=== PATIENT | female | born 1975 | race Caucasian/White ===

== ENCOUNTER → 2020-06-14 00:31 | Outpatient (CLI) | payer BC, SELFPAY ==
[2020-06-14 17:44] LABS: SARS-CoV-2 RNA PCR Negative
== END ==
PROVIDERS: Visit Provider Obstetrics & Gynecology Gynecology
DX: Z01.812 Encounter for preprocedural laboratory examination (principal); Z20.822 Contact with and (suspected) exposure to COVID-19
CPT/HCPCS: C9803; U0003; U0005

== ENCOUNTER 2020-06-17 01:18 | Day surgery (SDC) | payer BC, SELFPAY ==
[2020-06-05 14:03] VITALS: BMI 34.4
--- NOTE | 2020-06-17 07:32 | PM.HPGS ---
History of Present Illness History of Present Illness Consent: Risks, benefits, and alternatives have been discussed and questions answered. Patient agrees to proceed with procedure. Chief complaint: fibroids Narrative: Cammy Kothari is a 44 year old female with 6 months of heavier cycles. u/s showed a 1.5 cm lesion adjacent to or within the endometrial cavity. Attempted to remove in office but unable to remove. Visually lesion appears to be a fibroid. Recommend to proceed with hysteroscopy and D&C and myosure. Risks of infection,bleeding, perforation,and fluid imbalance reviewed. Agrees to proceed. Review of Systems Review of Systems: Narrative: not repeated day of surgery; patient states no changes in status PMFSH Past Medical History Medical History (Updated 06/17/20 @ 07:38 by Ashlie Pelayo MD) GERD (gastroesophageal reflux disease) History of hysteroscopy IBS (irritable bowel syndrome) Surgical History Surgical History (Updated 06/17/20 @ 07:37 by Ashlie Pelayo MD) History of elective Social History Social History Smoking status: Never smoker Substance use: never Living arrangements: with family Gender identity (if verbalized by the patient): Female Spiritual care concerns: No Meds Home Medications and Allergies Home Medications Medication Instructions Recorded Confirmed Type norgestimate-ethinyl estradiol 1 tablet PO DAILY 06/05/20 06/05/20 History [Estarylla] Allergies Allergy/AdvReac Type Severity Reaction Status Date / Time No Known Allergies Allergy Verified 06/05/20 14:06 Exam Const: General: comfortable and no acute distress : External Female Exam: normal external appearance Speculum Exam - Vagina: normal appearance of the vagina Speculum Exam - Cervix: normal appearance of the cervix Bimanual exam- vagina & uterus: normal bimanual exam Bimanual Exam- Adnexa, other: normal adnexae and No adnexal tenderness Assessment and Plan Assessment and plan (1) Menorrhagia: Code(s): N92.0 - Excessive and frequent menstruation with regular cycle Status: Acute Assessment and Plan: plan to proceed withe hysteroscopy with XL myosure and D&C (2) Fibroids: Code(s): D21.9 - Benign neoplasm of connective and other soft tissue, unspecified Status: Acute
--- NOTE | 2020-06-17 07:39 | WPDHPUPDATE1 ---
History and Physical Update Update Date/Time: 06/17/20 07:39 History and Physical has been reviewed, including an updated exam of the patient. There are NO changes in the patient's condition. Risks, benefits, and alternatives have been discussed and questions answered. Patient agrees to proceed with procedure.
[2020-06-17 07:55] VITALS: BP 147/75; PULSE 71; RESP 20; TEMP 36.9; O2SAT 100
--- NOTE | 2020-06-17 08:16 | P.PNAN_ITS ---
Anes - Initial Pre Proc Eval Procedure: Operation Date: 06/17/20 10:00 Proposed Procedures p Hysteroscopy with Myosure - Ashlie Pelayo MD Date/Time: 06/17/20 08:16 Surgeon: Ashlie Pelayo MD Pre Op Diagnosis: fibroids Patient Data Age: 44 Gender: F Height: 1.83 m Weight: 115 kg Allergies Allergy/AdvReac Type Severity Reaction Status Date / Time No Known Allergies Allergy Verified 06/05/20 14:06 Home Medications Medication Instructions Recorded Confirmed Type norgestimate-ethinyl estradiol 1 tablet PO DAILY 06/05/20 06/05/20 History [Estarylla] Patient hx anesthesia problems: none Family hx anesthesia problems: none [facility] Past Medical History Medical History (Updated 06/17/20 @ 07:38 by Ashlie Pelayo MD) GERD (gastroesophageal reflux disease) History of hysteroscopy IBS (irritable bowel syndrome) Surgical History Surgical History (Updated 06/17/20 @ 07:37 by Ashlie Pelayo MD) History of elective Social History Social History Smoking status: Never smoker Substance use: never Living arrangements: with family Gender identity (if verbalized by the patient): Female Spiritual care concerns: No Anes - Eval Final PreProcedure Day of Procedure 06/17/20 08:16 Patient weight: obese Heart: regular rate and rhythm Lungs: clear to auscultation and normal air movement Airway: Mallampati scale class II Neurological: alert and oriented Last oral intake: >/= 8 hours ASA classification: II Emergent: no Anesthetic plan: proceed Anesthesia type and monitoring: general GIVS and LMA Informed Consent: The patient's anesthetic plan and its attendant risks and benefits were discussed with the patient/family/POA. Questions were solicited and answers provided to the satisfaction of the patient/family/POA.
[2020-06-17] MEDS: ACETAMINOPHEN 500 MG TABLET 1000 MG PO (08:21)
[2020-06-17] MEDS: LACTATED RINGERS 1,000 ML 30 ML IV CONT (08:25)
--- NOTE | 2020-06-17 09:38 | PM.PROC ---
Procedure Note - Detailed Date of procedure: 06/17/20 Pre-op diagnosis: fibroids menorrhagia Post-op diagnosis: same Procedure performed: hysteroscopy D&C with myosure resection of fibroids Description of procedure: The patient was taken to the operating room and placed under anesthesia in the dorsal lithotomy position. She was prepped and draped in the usual sterile fashion. [place] speculum was placed in the vagina and the cervix grasped on the anterior lip with a tenaculum. Cervix is injected with 1% lidocaine in each quadrant. The uterus is sounded to 9cm. The cervix is serially dilated with [place]. The MyoSure extra large was placed. With the stated findings. Under direct visualization both fibroids are removed in their entirety. The MyoSure device is then removed and the medium sharp curette used to sharply curette the remainder of the endometrium until a good uterine cry was noted in all areas. All instruments are then removed. Sponge, instrument, and needle counts are correct per the OR staff. Anesthesia: MAC and local Surgeon: Ashlie Pelayo MD Estimated blood loss (mL): 5 Drains: No Packing: No Pathology: yes (endometrial curettings, shavings) Complications: No immediate complications Condition: stable Disposition: PACU Findings: uterus 9 cm; 2 fibroids-one fundal to left, one near endocervical junction; remained of endometrium appears normal grossly
[2020-06-17] MEDS: KETOROLAC 30 MG/ML VIAL (*BKC) IV PUSH (09:39)
[2020-06-17 09:46] VITALS: BP 106/67; PULSE 96; RESP 14; O2SAT 97
[2020-06-17 10:15] VITALS: BP 106/67; PULSE 70; RESP 20
[2020-06-17 10:35] VITALS: BP 112/68; PULSE 72; RESP 20
== END 2020-06-17 10:43 | disposition home or self-care (01) ==
PROVIDERS: Visit Provider Obstetrics & Gynecology Gynecology
PROC: 0U5B8ZZ Destruction of Endometrium, Via Natural or Artificial Opening Endoscopic (ICD-10-PCS; CPT 58563; principal; 2020-06-17 10:00)
DX: D25.0 Submucous leiomyoma of uterus (principal); N85.8 Other specified noninflammatory disorders of uterus; N92.0 Excessive and frequent menstruation with regular cycle; K21.9 Gastro-esophageal reflux disease without esophagitis; K58.9 Irritable bowel syndrome, unspecified; E66.9 Obesity, unspecified; Z68.29 Body mass index [BMI] 29.0-29.9, adult
CPT/HCPCS: 58561; 88305; A9270; J1885; J2250; J2704; J3010; J7030; J7120